=== PATIENT | female | born 1975 | race Hispanic/Latino ===

== ENCOUNTER 2018-09-28 08:21 | Outpatient (CLI) | payer BC ==
--- NOTE | 2018-09-28 09:22 | MMO ---
Bilateral MAMMO Bilat Screen [facility]. CLINICAL HISTORY: Patient is 42 years old and is seen for screening. The patient has no family history of breast cancer. The patient has no personal history of cancer. VIEWS: The views performed were: bilateral craniocaudal and bilateral mediolateral oblique. This study has been interpreted with the assistance of computer-aided detection. MAMMOGRAM FINDINGS: There are scattered fibroglandular densities. There are no suspicious masses, suspicious calcifications, or new areas of architectural distortion. IMPRESSION: THERE IS NO MAMMOGRAPHIC EVIDENCE OF MALIGNANCY. A ROUTINE FOLLOW-UP MAMMOGRAM IN 1 YEAR IS RECOMMENDED. ACR BI-RADS Category 1 - Negative MAMMOGRAPHY NOTE: 1. A negative mammogram report should not delay a biopsy if a dominant of clinically suspicious mass is present. 2. Approximately 10% to 15% of breast cancers are not detected by mammography. 3. Adenosis and dense breasts may obscure an underlying neoplasm.
== END 2018-09-28 08:22 | disposition home or self-care (01) ==
LOC: SCSMAMMO 08:21
PROVIDERS: ATTEND Family Medicine
DX: Z12.31 Encounter for screening mammogram for malignant neoplasm of breast (principal)
CPT/HCPCS: 77067

== ENCOUNTER 2022-07-23 07:54 | Outpatient (CLI) | payer BC ==
[2022-07-23 08:59] LABS: #Eosinphils 0.1 10x3/uL (0.0-0.5); #Monocytes 0.4 10x3/uL (0.0-1.1); #Neutrophils 2.5 10x3/uL (1.5-8.4); %Basophils 0.5 % (0.0-2.0); %Eosinophils 1.4 % (0.0-6.0); %Lymphocytes 30.7 % (18.0-47.0); %Neutrophils 58.4 % (40.0-75.0); Mean Corpuscular HGB CONC 33.4 g/dL (32.0-36.0); Mean Corpuscular Hemoglobin 32.2 pg (27.0-33.0); Mean Corpuscular Volume 96.2 fl (81.6-98.3); Platelet Count 269 10x3/uL (150-450); RBC Distribution Width 13.8 % (11.5-14.5); Red Blood Cell (RBC) Count 3.73 10x6/uL (3.90-5.03); White Blood Cell (WBC) Count 4.2 10x3/uL (3.5-10.5)
[2022-07-23 09:21] LABS: Anion Gap 14 mmol/L (10-20); BUN (Urea Nitrogen) 21 mg/dL (7.0-18.7); Calc. Creatinine Clearance 0 mL/min (70-130); Calcium 8.7 mg/dL (7.8-10.44); Carbon Dioxide 23 mmol/L (22-29); Chloride 108 mmol/L (98-107); Estimated GFR 94; Glucose 77 mg/dL (70-105); Potassium 3.5 mmol/L (3.5-5.1); Sodium 141 mmol/L (136-145)
[2022-07-23 09:29] LABS: BHCG - Serum Negative (NEGATIVE); Pregs Control Background? CLEAR/WHITE (CLR/WHITE); Pregs Control Bar Appear? YES (CONTROL BAR)
[2022-07-23 13:44] LABS: Hemoglobin A1c 5.4 % (4.0-6.0)
== END 2022-07-23 07:55 | disposition home or self-care (01) ==
LOC: LABBT 07:54
PROVIDERS: ATTEND Surgery
DX: Z01.818 Encounter for other preprocedural examination (principal); K57.92 Diverticulitis of intestine, part unspecified, without perforation or abscess without bleeding
CPT/HCPCS: 80048; 83036; 84703; 85025; 93005; 93010

== ENCOUNTER 2022-07-23 09:15 | Inpatient (IN) | payer BC ==
[2022-07-30] MEDS ORDERED: Midazolam HCl 2 mg/2 ml Vial ONE ×2 (09:48→15:33)
[2022-07-30] MEDS ORDERED: Bupivacaine 0.25% HCL 30 ML VIAL ONE (09:48)
[2022-07-30] MEDS ORDERED: fentaNYL 50 mcg/mL 1 mL Vial ONE (09:48)
[2022-07-30] MEDS ORDERED: Fentanyl 250 MCG/5 ML VIAL ONE ×2 (12:04→14:46)
[2022-07-30] MEDS ORDERED: Indocyanine Green 25 MG/10 ML VIAL ONE (12:08)
[2022-07-30] MEDS ORDERED: Bupivacaine/Epinephrine 0.25% 30 ML VIAL ONE (12:08)
[2022-07-30] MEDS ORDERED: cefOXitin 2 GM VIAL ONE (12:19)
[2022-07-30] MEDS ORDERED: Sodium Chloride 0.9% 100 ML ONE (12:19)
[2022-07-30] MEDS ORDERED: Ondansetron PF 4 MG/2 ML Vial ONE (12:35)
[2022-07-30] MEDS ORDERED: NEOSTIGMINE 3 MG/3 ML SYR 3 MG/3 ML SYRINGE ONE (12:35)
[2022-07-30] MEDS ORDERED: Labetalol HCl 100 MG/20 ML VIAL ONE (12:35)
[2022-07-30] MEDS ORDERED: Dexamethasone 20 MG/5 ML VIAL ONE (12:35)
[2022-07-30] MEDS ORDERED: Glycopyrrolate 0.2 MG/ML 5 ML SYRINGE ONE (12:35)
[2022-07-30] MEDS ORDERED: PROPOFOL 200 MG/20 ML VIAL ONE (12:35)
[2022-07-30] MEDS ORDERED: Rocuronium Bromide 10 MG/ML (10ML VIAL) ONE (12:35)
[2022-07-30] MEDS ORDERED: Lidocaine 1% PF 5 ML VIAL ONE (12:35)
[2022-07-30] MEDS ORDERED: Ketorolac Tromethamine 30 MG/ML VIAL ONE (12:35)
[2022-07-30] MEDS ORDERED: Promethazine HCl 25 MG/ML VIAL IM PRN ×2 (14:05→15:02)
[2022-07-30] MEDS ORDERED: Ondansetron HCl/PF 4 MG/2 ML Vial IVP PRN (14:05)
[2022-07-30] MEDS ORDERED: traMADol HCl 50 MG TAB PO PRN (15:02)
[2022-07-30] MEDS ORDERED: hydrALAZINE 20 MG/ML VIAL SLOW IVP PRN (15:02)
[2022-07-30] MEDS ORDERED: Ipratropium/Albuterol 3 ML NEB NEB PRN (15:02)
[2022-07-30] MEDS ORDERED: Acetaminophen 650 MG Suppository PR PRN (15:02)
[2022-07-30] MEDS ORDERED: Ondansetron PF 4 MG/2 ML Vial IVP PRN (15:02)
[2022-07-30] MEDS ORDERED: fentaNYL 50 mcg/mL 1 mL Vial SLOW IVP PRN (15:07)
[2022-07-30] MEDS: D5 1/2 NS w/20 mEq KCL 1,000 ML IV SCH (15:09)
[2022-07-30] MEDS ORDERED: D5 1/2 NS w/20 mEq KCL 1,000 ML ONE (15:32)
[2022-07-30] MEDS ORDERED: HYDROmorphone 0.5 MG/0.5 ML SYRINGE ONE (15:35)
[2022-07-30] MEDS ORDERED: HYDROcodone/Acetaminophen 5/325 mg Tablet PO PRN ×2 (15:47→15:48)
[2022-07-30] MEDS ORDERED: Morphine 2 MG/ML VIAL SLOW IVP PRN (15:49)
[2022-07-30] MEDS ORDERED: hydrALAZINE 20 MG/ML VIAL ONE (17:11)
[2022-07-30] MEDS ORDERED: Morphine 2 MG/ML VIAL ONE ×2 (17:19→18:08)
[2022-07-30] MEDS: Famotidine/PF 20 mg/2ml Vial SLOW IVP SCH (21:32)
[2022-07-30] MEDS: cefOXitin Sodium 1 GM in Sodium Chloride 0.9% 100 ML IVPB SCH (21:32)
[2022-07-30] MEDS: fentaNYL 50 mcg/mL 1 mL Vial SLOW IVP PRN (21:32)
[2022-07-30] MEDS: Famotidine 20 MG TAB PO SCH (21:33)
[2022-07-30] MEDS: traMADol HCl 50 MG TAB PO PRN (23:54)
[2022-07-31] MEDS: cefOXitin Sodium 1 GM in Sodium Chloride 0.9% 100 ML IVPB SCH (03:28)
[2022-07-31] MEDS: D5 1/2 NS w/20 mEq KCL 1,000 ML IV SCH ×4 (03:28→20:23)
[2022-07-31] MEDS: fentaNYL 50 mcg/mL 1 mL Vial SLOW IVP PRN ×2 (03:33→11:42)
[2022-07-31 06:22] LABS: #Lymphocytes 0.9 thou/uL (1.20-3.40); #Monocytes 0.6 thou/uL (0.11-0.59); #Neutrophils 5.7 thou/uL (1.40-6.50); %Basophils 0.2 % (0.0-1.0); %Eosinophils 0.1 % (0.0-10.0); %Lymphocytes 12.6 % (21.0-51.0); %Monocytes 8.5 % (0.0-10.0); %Neutrophils 78.5 % (42.0-75.0); Hemoglobin 13.3 g/dL (12.0-16.0); Mean Corpuscular HGB CONC 34.8 g/dL (32.0-36.0); Mean Corpuscular Hemoglobin 34.8 pg (27.0-31.0); Mean Platelet Volume 7.7 fL (7.4-10.4); Platelet Count 288 10x3/uL (130-400); RBC Distribution Width 13.1 % (11.5-14.5); Red Blood Cell (RBC) Count 3.82 mill/uL (4.20-5.40); White Blood Cell (WBC) Count 7.3 10x3/uL (4.8-10.8)
[2022-07-31 06:38] LABS: Anion Gap 12 mmol/L (10-20); BUN (Urea Nitrogen) 8 mg/dL (7.0-18.7); Calc. Creatinine Clearance 99 mL/min (70-130); Calcium 8.3 mg/dL (7.8-10.44); Carbon Dioxide 21 mmol/L (22-29); Chloride 107 mmol/L (98-107); Estimated GFR 103; Glucose 153 mg/dL (70-105); Potassium 3.9 mmol/L (3.5-5.1); Sodium 136 mmol/L (136-145)
[2022-07-31] MEDS: Famotidine/PF 20 mg/2ml Vial SLOW IVP SCH ×2 (09:27→21:08)
[2022-07-31] MEDS: Famotidine 20 MG TAB PO SCH ×2 (09:27→20:26)
[2022-07-31] MEDS: traMADol HCl 50 MG TAB PO PRN ×2 (09:40→16:25)
[2022-07-31] MEDS ORDERED: Losartan 25 MG TAB PO SCH (10:30)
[2022-07-31] MEDS ORDERED: Morphine 4 MG/ML VIAL SLOW IVP PRN (13:49)
[2022-07-31] MEDS: diphenhydrAMINE 25 MG CAP PO PRN ×2 (14:20→20:26)
[2022-07-31] MEDS: Ketorolac Tromethamine 30 MG/ML VIAL IVP PRN ×2 (14:21→20:26)
[2022-08-01] MEDS: diphenhydrAMINE 25 MG CAP PO PRN (04:49)
[2022-08-01] MEDS: traMADol HCl 50 MG TAB PO PRN (04:49)
[2022-08-01] MEDS: D5 1/2 NS w/20 mEq KCL 1,000 ML IV SCH ×2 (04:56→11:36)
[2022-08-01] MEDS: Famotidine/PF 20 mg/2ml Vial SLOW IVP SCH (08:13)
[2022-08-01] MEDS ORDERED: Losartan 25 MG TAB PO SCH (09:00)
[2022-08-01] MEDS: Famotidine 20 MG TAB PO SCH (09:16)
[2022-08-01 10:44] VITALS: BMI 24.3
[2022-08-01 12:08] VITALS: TEMP 98.4
[2022-08-01 15:50] VITALS: BP 146/62
== END 2022-08-01 13:15 | disposition home or self-care (01) | DRG 331 ==
LOC: EDSTATUS 09:15 → SURG A 07-30 08:03 → SURG B 07-30 19:54
PROVIDERS: ADMIT Surgery; ATTEND Surgery
PROC: 0DTN4ZZ Resection of Sigmoid Colon, Percutaneous Endoscopic Approach (ICD-10-PCS; principal; 2022-07-30)
PROC: 8E0W4CZ Robotic Assisted Procedure of Trunk Region, Percutaneous Endoscopic Approach (ICD-10-PCS; 2022-07-30)
DX: K57.32 Diverticulitis of large intestine without perforation or abscess without bleeding (principal); F90.9 Attention-deficit hyperactivity disorder, unspecified type; D64.9 Anemia, unspecified; Z82.49 Family history of ischemic heart disease and other diseases of the circulatory system; Z79.899 Other long term (current) drug therapy; Z87.891 Personal history of nicotine dependence
CPT/HCPCS: 36415; 36416; 80048; 85025; 88307; A4649; C1889; J0360; J0694; J1100; J1170; J1650; J1885; J2250; J2270; J2272; J2405; J2704; J3010; J3480; J3490; S0020; S0028